=== PATIENT | female | born 1935 | race Two or more races ===

== ENCOUNTER 2023-08-06 19:13 | Inpatient (IN) | payer MEDICARE, OTHER ==
[~2023-08-06] VITALS: Ht 162.6 cm; Wt 74.8 kg
[2023-08-06 20:29] VITALS: O2SAT 97
[2023-08-06 20:59] LABS: BASOPHILS % (AUTO) 0.3 % (0.0-2.0); EOSINOPHILS % (AUTO) 0.2 % (0.0-6.0); HEMATOCRIT 38 % (33-45); HEMOGLOBIN 11.9 g/dL (11.5-14.8); LYMPHOCYTES # (AUTO) 0.6 K/uL (0.8-4.8); LYMPHOCYTES % (AUTO) 4.8 % (20.0-44.0); MEAN CORPUSCULAR HEMOGLOBIN 29 PG (26.0-33.0); MEAN CORPUSCULAR HGB CONC 32 g/dl (31.0-36.0); MEAN CORPUSCULAR VOLUME 91 fL (82-100); MONOCYTES # (AUTO) 0.8 K/uL (0.1-1.30); MONOCYTES % (AUTO) 6.4 % (2.0-12.0); NEUTROPHILS # (AUTO) 11.2 K/uL (1.8-8.9); NEUTROPHILS % (AUTO) 88.3 % (43.0-81.0); PLATELET COUNT (AUTO) 343 K/uL (150-450); RED BLOOD CELL COUNT(AUTO) 4.13 MIL/uL (4.0-5.2); RED CELL DISTRIBUTION WIDTH 15.1 % (11.5-15.0); WHITE BLOOD COUNT (AUTO) 12.7 K/uL (4.3-11.0)
[2023-08-06 21:13] LABS: INR 1.04 (0.91-1.10); PARTIAL THROMBOPLASTIN TIME 23.6 SEC (24.3-34.3)
[2023-08-06 21:26] LABS: CALCIUM, SERUM 8.3 mg/dL (8.5-10.1); CARBON DIOXIDE 26 mmol/L (21-32); CHLORIDE 109 mmol/L (98-107); CREATININE 1.2 mg/dL (0.6-1.3); GLUCOSE 113 mg/dL (74-106); POTASSIUM 4.1 mmol/L (3.5-5.1); SODIUM SERUM 143 mmol/L (136-145); UREA NITROGEN, BLOOD 23 mg/dL (7-18)
[2023-08-06 21:33] LABS: ALANINE AMINOTRANSFERASE 14 U/L (12-78); ALBUMIN 2.8 g/dL (3.4-5.0); ALKALINE PHOSPHATASE 126 U/L (46-116); ASPARTATE AMINOTRANSFERASE 16 U/L (15-37); BILIRUBIN,DIRECT 0.1 mg/dL (0.0-0.2); BILIRUBIN,TOTAL 0.3 mg/dL (0.2-1.0); TOTAL PROTEIN, SERUM 6.8 g/dL (6.4-8.2)
[2023-08-06 21:49] LABS: LACTIC ACID 2.1 mmol/L (0.4-2.0)
[2023-08-06] MEDS ORDERED: ZOLPIDEM TARTRATE 5 MG TABLET PO PRN (22:30)
[2023-08-06] MEDS ORDERED: MAGNESIUM HYDROXIDE 30 ML UDC PO PRN (22:30)
[2023-08-06] MEDS ORDERED: ONDANSETRON HCL/PF 4 MG/2 ML VIAL IVP PRN (22:30)
[2023-08-06] MEDS ORDERED: CEFTRIAXONE 1 G in IV D5W 50 ML IV SCH (22:30)
[2023-08-06] MEDS ORDERED: MAG HYDROX/AL HYDROX/SIMETH 30 ML UDC PO PRN (22:30)
[2023-08-06] MEDS ORDERED: Z GUARD REMEDY 4 OZ OINT TP PRN (22:30)
[2023-08-06 23:10] VITALS: BP 121/66; TEMP 98.4; O2SAT 95
[2023-08-06] MEDS: IV NS 0.9% 1,000 ML IV PRN (23:58)
[2023-08-07] MEDS ORDERED: MENTHOL/CETYLPYRD (CEPACOL) 1 LOZ LOZENGE PO PRN (00:30)
[2023-08-07] MEDS ORDERED: CEFTRIAXONE 1GM BAG (ER ONLY) 50 ML IV ONE (01:36)
[2023-08-07] MEDS: CEFTRIAXONE 1 G in IV D5W 50 ML IV SCH ×2 (01:39→20:02)
[2023-08-07] MEDS: ACETAMINOPHEN 325 MG TABLET PO PRN (05:16)
[2023-08-07] MEDS: GABAPENTIN 300 MG CAPSULE PO SCH ×3 (05:51→16:17)
[2023-08-07 06:24] LABS: BASOPHILS % (AUTO) 0.5 % (0.0-2.0); EOSINOPHILS # (AUTO) 0.1 K/uL (0.0-0.7); EOSINOPHILS % (AUTO) 1.6 % (0.0-6.0); HEMATOCRIT 34 % (33-45); LYMPHOCYTES # (AUTO) 1.5 K/uL (0.8-4.8); LYMPHOCYTES % (AUTO) 18.9 % (20.0-44.0); MEAN CORPUSCULAR HEMOGLOBIN 30 PG (26.0-33.0); MEAN CORPUSCULAR HGB CONC 33 g/dl (31.0-36.0); MEAN CORPUSCULAR VOLUME 90 fL (82-100); MONOCYTES # (AUTO) 0.8 K/uL (0.1-1.30); MONOCYTES % (AUTO) 9.5 % (2.0-12.0); NEUTROPHILS # (AUTO) 5.6 K/uL (1.8-8.9); NEUTROPHILS % (AUTO) 69.5 % (43.0-81.0); PLATELET COUNT (AUTO) 320 K/uL (150-450); RED BLOOD CELL COUNT(AUTO) 3.72 MIL/uL (4.0-5.2)
[2023-08-07 06:58] LABS: CALCIUM, SERUM 8.1 mg/dL (8.5-10.1); CREATININE 1.1 mg/dL (0.6-1.3); MAGNESIUM 2.3 mg/dL (1.8-2.4); PHOSPHORUS 2.9 mg/dL (2.5-4.9); POTASSIUM 4.1 mmol/L (3.5-5.1)
[2023-08-07 07:30] VITALS: BP 118/68; TEMP 98.3; O2SAT 98
[2023-08-07] MEDS ORDERED: GABA-532 PO (09:00)
[2023-08-07] MEDS ORDERED: POLY15DR40 EACHEYE (09:00)
[2023-08-07] MEDS ORDERED: VIT1CAPS44 PO (09:00)
[2023-08-07] MEDS: MINERAL OIL/PETROL OINT 396 GM JAR TP SCH (11:36)
[2023-08-07 16:00] VITALS: BP 104/57; TEMP 98.1; O2SAT 95
[2023-08-07 19:30] VITALS: BP 100/66; TEMP 98.2; O2SAT 96
[2023-08-08] MEDS: IV NS 0.9% 1,000 ML IV PRN (02:35)
[2023-08-08 06:23] LABS: BASOPHILS % (AUTO) 0.9 % (0.0-2.0); EOSINOPHILS # (AUTO) 0.1 K/uL (0.0-0.7); EOSINOPHILS % (AUTO) 2.8 % (0.0-6.0); HEMATOCRIT 34 % (33-45); HEMOGLOBIN 10.8 g/dL (11.5-14.8); LYMPHOCYTES # (AUTO) 1.4 K/uL (0.8-4.8); MEAN CORPUSCULAR HEMOGLOBIN 29 PG (26.0-33.0); MEAN CORPUSCULAR HGB CONC 32 g/dl (31.0-36.0); MEAN CORPUSCULAR VOLUME 91 fL (82-100); MONOCYTES # (AUTO) 0.6 K/uL (0.1-1.30); MONOCYTES % (AUTO) 11.7 % (2.0-12.0); NEUTROPHILS % (AUTO) 57.6 % (43.0-81.0); PLATELET COUNT (AUTO) 284 K/uL (150-450); RED CELL DISTRIBUTION WIDTH 15.1 % (11.5-15.0); WHITE BLOOD COUNT (AUTO) 5.3 K/uL (4.3-11.0)
[2023-08-08 06:50] LABS: CALCIUM, SERUM 8.4 mg/dL (8.5-10.1); CREATININE 1.1 mg/dL (0.6-1.3); MAGNESIUM 2.3 mg/dL (1.8-2.4); PHOSPHORUS 3.2 mg/dL (2.5-4.9); POTASSIUM 4.3 mmol/L (3.5-5.1)
[2023-08-08 08:00] VITALS: BP 128/61; TEMP 98.8; O2SAT 95
[2023-08-08] MEDS: GABAPENTIN 300 MG CAPSULE PO SCH ×2 (10:10→17:46)
[2023-08-08] MEDS: MINERAL OIL/PETROL OINT 396 GM JAR TP SCH (10:10)
[2023-08-08 16:30] VITALS: BP 119/68; TEMP 97.9; O2SAT 100
[2023-08-08 20:00] VITALS: BP 117/61; TEMP 97.3; O2SAT 95
[2023-08-08] MEDS: CEFTRIAXONE 1 G in IV D5W 50 ML IV SCH (21:27)
[2023-08-08] MEDS: ACETAMINOPHEN 325 MG TABLET PO PRN (22:35)
[2023-08-09] MEDS ORDERED: diphenhydrAMINE HCL 50 MG/ML VIAL IV PRN (06:20)
[2023-08-09 07:30] VITALS: BP 125/63; TEMP 98.1; O2SAT 97
[2023-08-09] MEDS: GABAPENTIN 300 MG CAPSULE PO SCH ×2 (09:23→16:19)
[2023-08-09] MEDS: MINERAL OIL/PETROL OINT 396 GM JAR TP SCH (09:23)
[2023-08-09 16:00] VITALS: BP 117/64; TEMP 97.8; O2SAT 95
[2023-08-09] MEDS ORDERED: CEPH500T PO (16:39)
== END 2023-08-09 18:30 | DRG 641 ==
LOC: ER 19:15 → MED 22:25
PROVIDERS: ADMIT Nurse Practitioner Acute Care; ATTEND Nurse Practitioner Acute Care
PROC: 05H533Z Insertion of Infusion Device into Right Subclavian Vein, Percutaneous Approach (ICD-10-PCS; principal; 2023-08-08)
PROC: B546ZZA Ultrasonography of Right Subclavian Vein, Guidance (ICD-10-PCS; 2023-08-08)
DX: E86.0 Dehydration (principal); N39.0 Urinary tract infection, site not specified; E44.0 Moderate protein-calorie malnutrition; N17.9 Acute kidney failure, unspecified; E87.20 Acidosis, unspecified; E86.9 Volume depletion, unspecified; D72.829 Elevated white blood cell count, unspecified; E88.09 Other disorders of plasma-protein metabolism, not elsewhere classified; G89.29 Other chronic pain; Z20.822 Contact with and (suspected) exposure to COVID-19; Z68.28 Body mass index [BMI] 28.0-28.9, adult; W19.XXXA Unspecified fall, initial encounter; Y93.9 Activity, unspecified; Y92.009 Unspecified place in unspecified non-institutional (private) residence as the place of occurrence of the external cause
CPT/HCPCS: 36410; 36415; 70450-TC; 71045-TC; 72125-TC; 80048-TC; 80076-TC; 82550-TC; 83605-TC; 83735-TC; 84100-TC; 84484-TC; 85025-TC; 85730-TC; 87040-TC; 97110-TC; 97116-TC; 97530-TC; A4223; G0378; J0696; J1200; J7030; J7060

== ENCOUNTER 2024-12-13 22:30 | Emergency (ER) | payer MEDICARE, OTHER ==
[~2024-12-13] VITALS: Ht 170.2 cm; Wt 59.0 kg
[~2024-12-13 22:30] MED LIST: CEPH500T PO; GABA-532 PO; POLY15DR40 EACHEYE; VIT1CAPS44 PO
[2024-12-13 23:43] VITALS: BP 119/72; TEMP 98.3; O2SAT 98
== END 2024-12-13 23:44 | disposition home or self-care (01) ==
LOC: ER 22:46
DX: H35.3220 Exudative age-related macular degeneration, left eye, stage unspecified (principal); G89.29 Other chronic pain; Z79.899 Other long term (current) drug therapy

== ENCOUNTER 2024-12-23 10:32 | Emergency (ER) | payer OTHER ==
[~2024-12-23] VITALS: Ht 177.8 cm; Wt 52.2 kg
[2024-12-23 10:35] VITALS: BP 126/99; O2SAT 96
[2024-12-23] MEDS: IV NS 0.9% 1,000 ML BAG IV ONE (11:00)
[2024-12-23 11:15] LABS: CARBON DIOXIDE 22 mmol/L (21-32); CHLORIDE 106 mmol/L (98-107); GLUCOSE 84 mg/dL (74-106); POTASSIUM 3.3 mmol/L (3.5-5.1); SODIUM SERUM 137 mmol/L (136-145); UREA NITROGEN, BLOOD 14 mg/dL (7-18)
[2024-12-23 11:20] LABS: CREATININE 1.1 mg/dL (0.6-1.3)
[2024-12-23 11:40] LABS: BASOPHILS # (AUTO) 0.1 K/uL (0.0-0.2); BASOPHILS % (AUTO) 0.6 % (0.0-2.0); EOSINOPHILS # (AUTO) 0.1 K/uL (0.0-0.7); EOSINOPHILS % (AUTO) 0.6 % (0.0-6.0); HEMATOCRIT 47 % (33-45); HEMOGLOBIN 15.3 g/dL (11.5-14.8); LYMPHOCYTES # (AUTO) 1.5 K/uL (0.8-4.8); LYMPHOCYTES % (AUTO) 13.2 % (20.0-44.0); MEAN CORPUSCULAR HEMOGLOBIN 29 PG (26.0-33.0); MEAN CORPUSCULAR HGB CONC 32 g/dl (31.0-36.0); MEAN CORPUSCULAR VOLUME 88 fL (82-100); MONOCYTES # (AUTO) 0.9 K/uL (0.1-1.30); MONOCYTES % (AUTO) 7.5 % (2.0-12.0); NEUTROPHILS # (AUTO) 8.8 K/uL (1.8-8.9); NEUTROPHILS % (AUTO) 78.1 % (43.0-81.0); PLATELET COUNT (AUTO) 352 K/uL (150-450); RED BLOOD CELL COUNT(AUTO) 5.35 MIL/uL (4.0-5.2); RED CELL DISTRIBUTION WIDTH 16.1 % (11.5-15.0); WHITE BLOOD COUNT (AUTO) 11.3 K/uL (4.3-11.0)
[2024-12-23 12:43] LABS: APPEARANCE,URINE CLOUDY (CLEAR); BILIRUBIN,URINE MODERATE (NEGATIVE); BLOOD, URINE Moderate Ery/uL (NEGATIVE); COLOR,URINE YELLOW (YELLOW); KETONES,URINE 40 mg/dL (NEGATIVE); LEUKOCYTE ESTERASE ,URINE Small (NEGATIVE); PH,URINE 5.5 (5.0-8.0); PROTEIN,URINE 30 mg/dl (NEGATIVE); UGLUCOSE Negative (NEGATIVE); UROBILINOGEN,URINE 0.2 EU/dL (0.2)
[2024-12-23 12:46] LABS: NITRITE, URINE NEGATIVE (NEGATIVE)
[2024-12-23 12:54] LABS: ADD URINE CULTURE YES; BACTERIA,URINE 3+ /HPF (None Seen); MUCUS,URINE Few /LPF (None Seen)
== END 2024-12-23 14:15 | disposition short-term general hospital (02) ==
LOC: ER 10:35
DX: G89.29 Other chronic pain (principal); R53.1 Weakness; E86.0 Dehydration; Z79.899 Other long term (current) drug therapy; Z96.643 Presence of artificial hip joint, bilateral; Z98.1 Arthrodesis status
CPT/HCPCS: 99285; 96360; 71045; 93005; 72170; 85025; 80048; 81001; 36415; 84484 ×2; J7030; A4223; 87086-TC